=== PATIENT | male | born 1995 | race African-American/Black ===

== ENCOUNTER 2019-02-28 01:01 | Emergency (ER) | payer MEDICAID ==
[~2019-02-28] VITALS: Ht 170.2 cm; Wt 64.4 kg
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
[2019-02-28 01:38] VITALS: BP 119/84
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
[2019-02-28] MEDS ORDERED: IBUPROFEN600 MG ORAL (02:29)
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
--- NOTE | 2019-02-28 02:42 | NUR ---
ED Nurse Note: Pt cleared by health care Provider for discharge. DC instructions/prescription was given and explained to pt and verbalized understanding of teachings. All medical deviecs such as ID band removed. Pt is AAO x4, ambulatory and left with all personal belongings.
== END 2019-02-28 02:42 | disposition home or self-care (01) ==
LOC: EMR 02:30
DX: S16.1XXA Strain of muscle, fascia and tendon at neck level, initial encounter (principal); S40.021A Contusion of right upper arm, initial encounter; V43.62XA Car passenger injured in collision with other type car in traffic accident, initial encounter; Y92.410 Unspecified street and highway as the place of occurrence of the external cause
CPT/HCPCS: 72040; 99283